=== PATIENT | male | born 1955 | race Native Hawaiian/Other Pacific Islander ===

== ENCOUNTER 2017-12-06 15:53 | Outpatient (CLI) | payer OTHER | END 2017-12-06 21:07 | disposition home or self-care (01) | LOC: RESP 15:53 | DX: R55 Syncope and collapse (principal); R42 Dizziness and giddiness | CPT/HCPCS: 93225 ==

== ENCOUNTER 2022-06-13 09:41 | Outpatient (CLI) | payer OTHER ==
[2022-06-13 10:38] LABS: PLATELET COUNT 39 K/uL (142-355)
[2022-06-13 10:48] LABS: POTASSIUM 3.9 mmol/L (3.6-5.2)
== END 2022-06-13 20:10 | disposition home or self-care (01) ==
LOC: LABW 09:41 → US 09:41
PROVIDERS: ATTEND Internal Medicine Gastroenterology
DX: R18.8 Other ascites (principal); K74.69 Other cirrhosis of liver
CPT/HCPCS: 36415; 80053; 85008; 85027; 85610; 85730

== ENCOUNTER 2022-09-09 10:26 | Outpatient (CLI) | payer OTHER ==
[2022-09-09 11:30] LABS: PLATELET COUNT 34 K/uL (142-355)
[2022-09-09 11:42] LABS: POTASSIUM 3.7 mmol/L (3.6-5.2)
[2022-09-09 11:52] LABS: PARTIAL THROMBOPLASTIN TIME 37.4 SECONDS (23.9-36.7)
== END 2022-09-09 19:11 | disposition home or self-care (01) ==
LOC: LABW 10:26 → US 10:30 → LABW 19:11
PROVIDERS: ATTEND Internal Medicine Gastroenterology
DX: R18.8 Other ascites (principal); K74.69 Other cirrhosis of liver
CPT/HCPCS: 36415; 80053; 85027; 85610; 85730

== ENCOUNTER 2022-09-16 09:49 | Outpatient (CLI) | payer OTHER ==
[2022-09-16 10:25] LABS: PLATELET COUNT 45 K/uL (142-355)
[2022-09-16 10:41] LABS: PARTIAL THROMBOPLASTIN TIME 41.5 SECONDS (23.9-36.7)
[2022-09-16 10:51] LABS: POTASSIUM 4.6 mmol/L (3.6-5.2)
== END 2022-09-16 19:03 | disposition home or self-care (01) ==
LOC: US 09:49
PROVIDERS: ATTEND Internal Medicine Gastroenterology
DX: R18.8 Other ascites (principal); K74.69 Other cirrhosis of liver
CPT/HCPCS: 36415; 80053; 85027; 85610; 85730